=== PATIENT | female | born 1950 | race Caucasian/White ===

== ENCOUNTER → 2017-08-15 | Outpatient (CLI) | payer OTHER ==
[~2017-08-15] MED LIST: GADOBUTROL 10 ML VIAL IVP ONE
== END ==
LOC: FIMAGING 10:26
PROVIDERS: ATTEND Internal Medicine Hematology & Oncology
DX: S73.192A Other sprain of left hip, initial encounter (principal); M76.02 Gluteal tendinitis, left hip; M51.36 Other intervertebral disc degeneration, lumbar region; Z85.3 Personal history of malignant neoplasm of breast
CPT/HCPCS: 73723; A9585